=== PATIENT | male | born 1960 | race Caucasian/White ===

== ENCOUNTER 2016-08-20 05:58 | Day surgery (SDC) | payer MEDICARE, BC ==
[~2016-08-20] VITALS: Ht 154.9 cm; Wt 88.2 kg
[2016-08-20] VITALS (13 sets, daily range): BP systolic 101–177; BP diastolic 51–96; PULSE 62–70; RESP 10–22; Ht 154.9 cm; Wt 88.2 kg
[~2016-08-20 05:58] MED LIST: ASPI-664 PO; CARV6.2579 PO; CHOL500010 PO; DULO20CA43 PO; FAMO20TA18 PO; LEVE750T70 PO; OMEG300C3 PO; ROSU5TAB5 PO
[2016-08-20] MEDS ORDERED: BUPIVACAINE 0.5% (SDV) 30 ML INJ ONE (06:51)
[2016-08-20] MEDS ORDERED: ROPIVACAINE 0.5 % 30 ML VIAL ONE ×2 (06:51→07:07)
[2016-08-20] MEDS ORDERED: PROPOFOL 20 ML ONE (07:06)
[2016-08-20] MEDS ORDERED: MIDAZOLAM 1 MG/ML 2 ML INJ ONE ×2 (07:07)
[2016-08-20] MEDS ORDERED: FENTAnyl 50 MCG/ML VIAL ONE (07:07)
[2016-08-20 07:09] LABS: ADD SCAN DIFF NO
[2016-08-20 07:10] LABS: BASOPHILS % 0.3 % (0.0-2.0); EOSINOPHILS # 0.3 10^3/ul (0.0-0.5); EOSINOPHILS % 4.6 % (0.0-7.0); HEMATOCRIT 34.2 % (42.0-52.0); HEMOGLOBIN 11.7 g/dl (14.0-18.0); LYMPHOCYTES # 2.3 10^3/ul (0.8-2.9); LYMPHOCYTES % 31.6 % (15.0-51.0); MEAN CORPUSCULAR HEMOGLOBIN 30.6 pg (29.0-33.0); MEAN CORPUSCULAR HGB CONC 34.2 g/dl (32.0-37.0); MEAN CORPUSCULAR VOLUME 89.5 fl (82.0-101.0); MEAN PLATELET VOLUME 9.7 fl (7.4-10.4); MONOCYTE # 0.5 10^3/ul (0.3-0.9); MONOCYTES % 7.4 % (0.0-11.0); NEUTROPHILS % 55.7 % (39.0-77.0); PLATELET COUNT 151 10^3/UL (140-415); RED BLOOD COUNT 3.82 10^6/ul (4.70-6.10); RED CELL DISTRIBUTION WIDTH 12.2 % (11.5-14.5); WHITE BLOOD COUNT 7.2 10^3/ul (4.8-10.8)
[2016-08-20 07:22] LABS: INR 0.93; PROTIME 12.5 Sec (12.2-14.2)
[2016-08-20 07:23] LABS: PARTIAL THROMBOPLASTIN TIME 30.1 Sec (25.0-35.0)
[2016-08-20 07:29] LABS: ALBUMIN 4.1 g/dl (3.3-4.9)
[2016-08-20 07:31] LABS: CREATININE 0.74 mg/dl (0.61-1.24); POTASSIUM 4.1 mmol/L (3.5-5.1)
[2016-08-20 07:32] LABS: ALBUMIN/GLOBULIN RATIO 1.41; BILIRUBIN,INDIRECT 0.2 mg/dl (0-1.1); BILIRUBIN,TOTAL 0.2 mg/dl (0.2-1.3)
--- NOTE | 2016-08-20 07:42 | HPN ---
Date/Time of Note Date/Time of Note DATE: 08/20/16 TIME: 07:42 Interval H&P Admission Note Pt. seen H&P reviewed: No system changes FELIPA SHORE MD Aug 20, 2016 07:42
[2016-08-20] MEDS ORDERED: morphine 10 MG INJ IV PRN (08:00)
[2016-08-20] MEDS ORDERED: morphine 2 MG INJ IV PRN (08:00)
[2016-08-20] MEDS ORDERED: OXYCODONE/ACETAMINOPHEN (5/325) TAB PO PRN ×3 (08:00→09:00)
[2016-08-20] MEDS ORDERED: ONDANSETRON 4 MG INJ ONE (08:29)
[2016-08-20] MEDS ORDERED: DEXAMETHASONE 4 MG/ML 1 ML INJ ONE (08:29)
[2016-08-20] MEDS ORDERED: METOCLOPRAMIDE 10 MG INJ ONE (08:29)
[2016-08-20] MEDS ORDERED: CEFAZOLIN 1 GM INJ ONE (08:29)
[2016-08-20] MEDS ORDERED: KETOROLAC 30 MG INJ ONE (08:29)
[2016-08-20] MEDS ORDERED: NEOMYC/POLYMYX/BACIT 3.5GM OPH OINT ONE (08:50)
[2016-08-20] MEDS ORDERED: NEOMYC/POLYMYX/BACIT 30 GM OINT ONE (08:51)
[2016-08-20] MEDS ORDERED: METOCLOPRAMIDE 10 MG INJ IV PRN (09:00)
[2016-08-20] MEDS ORDERED: morphine (1 MG/ML) 10ML SYRINGE IV PRN ×3 (09:00)
[2016-08-20] MEDS ORDERED: EPHEDrine SULFATE 50 MG/5 ML SYG IV PRN (09:00)
[2016-08-20] MEDS ORDERED: MEPERIDINE 25 MG INJ IV PRN (09:00)
[2016-08-20] MEDS ORDERED: ONDANSETRON 4 MG INJ IV PRN (09:00)
[2016-08-20] MEDS ORDERED: LABETALOL HCL 20MG INJ IV PRN (09:00)
[2016-08-20] MEDS ORDERED: DIPHENHYDRAMINE 50 MG INJ IV PRN (09:00)
[2016-08-20] MEDS ORDERED: HYDROmorphONE (0.2 MG/ML) 10ML SYG IV PRN ×3 (09:00)
[2016-08-20] MEDS ORDERED: hydrALAzine 20 MG INJ IV PRN (09:00)
--- NOTE | 2016-08-20 11:54 | OPR ---
Date/Time of Note Date/Time of Note DATE: 08/20/16 TIME: 11:46 Operative Report Free Text/Dictation DATE OF PROCEDURE: 08/20/2016 SURGEON: Jamil Shore M.D. MATHEMATICAL SCIENTIST: none PREOP DIAGNOSES: 1. Right knee pain 2. Right knee chondromalacia of the patella-femoral joint 3. Right knee posterior horn medial meniscal tear POSTOP DIAGNOSES: 1. Right knee pain 2. 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 Right knee posterior horn medial meniscal tear 4. Right knee medial and lateral compartment grade III 5. Right knee lateral meniscal tear PROCEDURE: 1. Surgical arthroscopy of the Right knee with partial medial and lateral meniscectomy 2. Chondroplasty of the medial and lateral and patella femoral compartments 3. Right knee arthroscopic removal of loose body TOURNIQUET TIME: 0 MINUTES AT 250 mmHg EBL: Less than 20 ML COMPLICATIONS: None CONDITION UPON LEAVING THE OPERATING ROOM: Stable to PACU ANESTHESIA TYPE: General, Fascia-Ilacus Block, local INDICATIONS: Patient is a 56-year-old male with ongoing Right knee pain. He has complained of having clicking and locking symptoms over the medial aspect of his knee with no relief with PT or anti-inflammatory. Patient has decided to proceed with surgery. Patient is aware that he has extensive OA to the knee and the goal with this surgery is help achieve better range and motion and help prolong need for tka. RISK NOTE: Patient was explained the risks and benefits of the surgery in the patients [place] language, including not limited to infection, bleeding, loss of limb, loss of life, need for future surgery, risk of anesthesia, risk of injury to the blood vessels and nerves, ligaments or tendons, and risk of deep vein thrombosis. Patient understood these risks and wished to proceed with the surgery. OPERATIVE NOTE: The correct operative site was noted and marked in the preoperative holding area. The patient was then brought back into the operative theater, placed supine on the operative table. Right knee was examined under anesthesia. Range of motion was 0-120. There is no varus or valgus or anterior posterior instability. There is crepitus noticed at the patellofemoral joint. Tourniquet was then placed on the operative extremity thigh non-sterilely. Patient was then given preoperative antibiotics and then prepped and draped in normal sterile fashion. A timeout was taken and all parties in the room agreed it was the correct patient, correct extremity and correct procedure. Standard anterior lateral portal was created and the knee joint was entered with a blunt tipped trocar, followed by 30 arthroscope. Inflow was achieved with a pump and the pressure maintained at approximately 50 mmHg. A routine arthroscopic surgery was performed. Suprapatella pouch was unremarkable. The undersurface of the patella showed advanced grade 3 chondromalacia and the medial femoral trochlear groove showed advanced grade 3 changes midline with exposed bone. The medial and lateral gutters were visualized. There were no loose bodies seen. There is an inflamed hypertrophic plica noted in the anterior and superior medial aspect of the knee. The popliteus hiatus was entered and was normal. Lateral compartment was entered and grade 3 chondromalacia was seen on the lateral tibial plateau and femoral condyle with a focal chondral defect seen on the lateral femoral condyle Scope was then brought into the intercondylar notch and an anteromedial portal was made. Shaver was brought into the knee and small amount of fat pad and scar tissue was initially gently debrided. The anterior cruciate ligament was intact and probed. The knee was brought into a valgus position and the medial compartment was entered. The articular surface of the medial femoral condyle and medial tibial plateau revealed diffuse grade 3 chondromalacia. There was a degenerative posterior horn medial meniscus tear extending to the midbody that was associated with a radial tear that visualized and debrided gently with a motorized shaver and basket forceps, the posterior horn demonstrated a degenerative tear and fibrillation pattern. The motorized shaver and basket biters were used to smooth the remaining meniscal rim, with care to maintain the peripheral meniscal rim. A probe was introduced and this was carefully probed and was found to be stable. Chondroplasty was then carried out along the weightbearing aspect of the medial femoral condyle, medial tibial plateau, taking care to remove only loose articular cartilage debris and preserve functional articular cartilage. Approximately 1 cm size worth of of loose body was removed from underneath the midbody of the meniscus. The lateral compartment was reentered and the loose chondral debris was debrided with motorized shaver. The focal chondral defect was also debrided. There was a degenerative mdi body lateral meniscus tear extending to the midbody that was associated with a cleavage tear that visualized and debrided gently with a motorized shaver and basket forceps, the meniscus demonstrated a degenerative tear and fibrillation pattern. The motorized shaver and basket biters were used to smooth the remaining meniscal rim, with care to maintain the peripheral meniscal rim. A probe was introduced and this was carefully probed and was found to be stable. Chondroplasty was then carried out along the weightbearing aspect of the femoral condyle, tibial plateau, taking care to remove only loose articular cartilage debris and preserve functional articular cartilage. Attention was then directed back to the patella femoral joint and a chondroplasty was carried out along the weightbearing aspect of the trochlea and undersurface of the patella to again remove loose debris and maintain functional active articular cartilage. The knee was then irrigated with additional 2 L of lactated Ringers solution. Excess fluid was then drained. Range of motion was then attempted showing 0- 125 degrees of motion The portal sites were closed with 4-0 Monocryl and Steri-Strips and dressed with Xeroform and triple antibiotic ointment. The knee was then injected with 20 cc of 0.5% plain ropivacaine. A dry sterile dressing was then applied followed by a bulky soft bandage in a thigh-high Sameer stocking. At the completion of the surgery patient had palpable pulses, soft arms and brisk cap refill. The patient tolerated the procedure well and was taken to the PACU without any complications. All sponge and needle counts were correct. Patient will begin pain medicine and 48 hours of antibiotics as well as aspirin 81 mg for the duration of 4 weeks postoperatively Procedure Date: Aug 20, 2016 JAMIL SHORE MD Aug 20, 2016 11:54
== END 2016-08-20 11:15 | disposition home or self-care (01) ==
LOC: SDS 05:58
PROVIDERS: ATTEND Orthopaedic Surgery
DX: M23.200 Derangement of unspecified lateral meniscus due to old tear or injury, right knee (principal); M23.211 Derangement of anterior horn of medial meniscus due to old tear or injury, right knee; I25.10 Atherosclerotic heart disease of native coronary artery without angina pectoris; Z95.1 Presence of aortocoronary bypass graft; I10 Essential (primary) hypertension; M23.41 Loose body in knee, right knee; M22.41 Chondromalacia patellae, right knee; M17.11 Unilateral primary osteoarthritis, right knee
CPT/HCPCS: 29880; 80053; 85025; 85610; 85730; G0289; J0690; J1100; J1885; J2250; J2405; J2765; J2795; J3010

== ENCOUNTER 2016-08-21 09:48 | Emergency (ER) | payer MEDICARE, BC ==
[~2016-08-21] VITALS: Ht 160 cm; Wt 92.0 kg
[2016-08-21 10:21] VITALS: Ht 160 cm; Wt 92.0 kg
== END 2016-08-21 13:56 | disposition left against medical advice (07) ==
LOC: E/R 09:48
DX: Z53.21 Procedure and treatment not carried out due to patient leaving prior to being seen by health care provider (principal)